=== PATIENT | female | born 1995 | race Caucasian/White ===

== ENCOUNTER 2023-04-16 09:58 | Inpatient (IN) | payer BC ==
[2023-04-16 10:36] LABS: #Eosinphils 0.1 10x3/uL (0.0-0.5); #Monocytes 0.3 10x3/uL (0.0-1.1); #Neutrophils 2.8 10x3/uL (1.5-8.4); %Basophils 0.4 % (0.0-2.0); %Eosinophils 2.6 % (0.0-6.0); %Lymphocytes 30.3 % (18.0-47.0); %Monocytes 6.7 % (0.0-10.0); %Neutrophils 59.6 % (40.0-75.0); Hematocrit 20.4 % (34.9-44.5); Hemoglobin 6.9 g/dL (12.0-15.5); Mean Corpuscular HGB CONC 33.8 g/dL (32.0-36.0); Mean Corpuscular Hemoglobin 32.5 pg (27.0-33.0); Mean Corpuscular Volume 96.2 fl (81.6-98.3); Mean Platelet Volume 9.9 fl (7.4-10.4); Platelet Count 277 10x3/uL (150-450); RBC Distribution Width 13.3 % (11.5-14.5); Red Blood Cell (RBC) Count 2.12 10x6/uL (3.90-5.03); White Blood Cell (WBC) Count 4.7 10x3/uL (3.5-10.5)
[2023-04-16 10:48] LABS: Anion Gap 13 mmol/L (10-20); BUN (Urea Nitrogen) 11 mg/dL (7.0-18.7); Calc. Creatinine Clearance 0 mL/min (70-130); Calcium 8.6 mg/dL (7.8-10.44); Carbon Dioxide 22 mmol/L (22-29); Chloride 107 mmol/L (98-107); Estimated GFR 110; Glucose 93 mg/dL (70-105); Potassium 3.9 mmol/L (3.5-5.1); Sodium 138 mmol/L (136-145)
[2023-04-16 11:16] LABS: BHCG - Serum Negative (NEGATIVE); Pregs Control Background? CLEAR/WHITE (CLR/WHITE); Pregs Control Bar Appear? YES (CONTROL BAR)
[2023-04-16 12:46] LABS: Prothrombin Time 10.9 sec (9.5-12.1)
[2023-04-16] MEDS ORDERED: FLU VACC QS2023-24(6MOS UP)/PF 60 MCG/0.5 ML SYRINGE IM ONE (14:15)
[2023-04-16] MEDS: Lactated Ringer's 1,000 ML IV SCH ×2 (14:58→21:23)
[2023-04-16] MEDS ORDERED: Estrogens, Conjugated 25 mg Vial SLOW IVP SCH (15:00)
[2023-04-16] MEDS ORDERED: Sterile Water 10 ML ONE (15:05)
[2023-04-16] MEDS: Ibuprofen 200 MG TAB PO PRN (16:13)
[2023-04-16] MEDS: Acetaminophen 500 MG TAB PO PRN (18:10)
[2023-04-16] MEDS: Estrogens, Conjugated 25 mg Vial SLOW IVP SCH (21:54)
[2023-04-17] MEDS: Ibuprofen 200 MG TAB PO PRN ×4 (00:05→20:22)
[2023-04-17] MEDS: Lactated Ringer's 1,000 ML IV SCH ×3 (06:33→22:06)
[2023-04-17] MEDS ORDERED: Estrogens, Conjugated 25 mg Vial SLOW IVP SCH (07:45)
[2023-04-17 08:18] LABS: Hematocrit 18.1 % (34.9-44.5); Hemoglobin 6.1 g/dL (12.0-15.5)
[2023-04-17] MEDS ORDERED: Tranexamic Acid 1,000 MG in Sodium Chloride 0.9% 250 ML 250 ML IVPB SCH (08:30)
[2023-04-17] MEDS ORDERED: Tranexamic Acid 1,000 MG/10 ML VIAL IVP SCH (08:30)
[2023-04-17] MEDS: Estrogens, Conjugated 25 mg Vial SLOW IVP SCH ×2 (09:44→22:01)
[2023-04-17] MEDS: Ondansetron PF 4 MG/2 ML Vial IVP PRN (10:16)
[2023-04-17] MEDS: Acetaminophen 500 MG TAB PO PRN ×2 (11:25→17:53)
[2023-04-17 18:18] LABS: Hematocrit 21.6 % (34.9-44.5); Hemoglobin 7.2 g/dL (12.0-15.5)
[2023-04-17] MEDS ORDERED: Iron Sucrose Complex 200 MG in Sodium Chloride 0.9% 100 ML IVPB SCH (18:30)
[2023-04-17] MEDS ORDERED: Iron, Sodium Ferric Gluconate 250 MG in Sodium Chloride 0.9% 250 ML 250 ML IVPB SCH (20:00)
[2023-04-17] MEDS ORDERED: Sterile Water 10 ML VIAL FS PRN (21:43)
[2023-04-18] MEDS ORDERED: diphenhydrAMINE 50 MG/ML VIAL IVP SCH (00:30)
[2023-04-18] MEDS: Ondansetron PF 4 MG/2 ML Vial IVP PRN (00:36)
[2023-04-18] MEDS ORDERED: diphenhydrAMINE 50 MG/ML VIAL ONE (00:36)
[2023-04-18] MEDS ORDERED: methylPREDNISolone Sod Succ 40 MG VIAL IM SCH (00:45)
[2023-04-18] MEDS: Lactated Ringer's 1,000 ML IV SCH (01:55)
[2023-04-18] MEDS: Acetaminophen 500 MG TAB PO PRN (01:56)
[2023-04-18] MEDS ORDERED: Calcium Carbonate 500 MG ChewTAB PO PRN (02:54)
[2023-04-18] MEDS ORDERED: Famotidine/PF 20 mg/2ml Vial SLOW IVP SCH (03:00)
[2023-04-18 06:21] LABS: Hematocrit 23.8 % (34.9-44.5); Hemoglobin 8.1 g/dL (12.0-15.5); Platelet Count 303 10x3/uL (150-450)
[2023-04-18] MEDS: Ibuprofen 200 MG TAB PO PRN (07:39)
[2023-04-18 07:54] VITALS: BP 89/52; TEMP 98.6
[2023-04-18] MEDS: Estrogens, Conjugated 25 mg Vial SLOW IVP SCH (10:15)
== END 2023-04-18 11:40 | disposition home or self-care (01) | DRG 760 ==
LOC: CSHERS 09:58 → INTOOBSV 11:08 → CSHPED 11:08 → OBSVTOIN 04-18 07:39
PROVIDERS: ADMIT Obstetrics & Gynecology; ATTEND Obstetrics & Gynecology
PROC: 30233N1 Transfusion of Nonautologous Red Blood Cells into Peripheral Vein, Percutaneous Approach (ICD-10-PCS; principal; 2023-04-16)
DX: N93.8 Other specified abnormal uterine and vaginal bleeding (principal); D62 Acute posthemorrhagic anemia; Z98.890 Other specified postprocedural states; Z79.899 Other long term (current) drug therapy
CPT/HCPCS: 36415; 36430; 76856; 80048; 84703; 85014; 85018; 85025; 85049; 85245; 85246; 85247; 85610; 86850; 86900; 86901; 96365; 96375; 96376; 99284; G0378; J1200; J1410; J2405; J2916; J7050; J7120; P9016; S0028

== ENCOUNTER 2023-04-22 14:01 | Emergency (ER) | payer BC | END 2023-04-22 17:05 | disposition home or self-care (01) | LOC: CSHERS 14:01 | DX: I82.612 Acute embolism and thrombosis of superficial veins of left upper extremity (principal) ==

== ENCOUNTER 2023-06-02 15:08 | Outpatient (CLI) | payer BC | END 2023-06-02 15:09 | disposition home or self-care (01) | LOC: CSHULT 15:08 | PROVIDERS: ATTEND Nurse Practitioner Family | DX: I80.8 Phlebitis and thrombophlebitis of other sites (principal); I82.712 Chronic embolism and thrombosis of superficial veins of left upper extremity ==